=== PATIENT | male | born 1955 | race Caucasian/White ===

== ENCOUNTER 2016-04-09 10:37 | Emergency (ER) | payer MEDICARE, MEDICAID | END 2016-04-09 12:20 | disposition left against medical advice (07) | LOC: UCCORT 10:37 | DX: K59.00 Constipation, unspecified (principal); Z76.0 Encounter for issue of repeat prescription; Z53.21 Procedure and treatment not carried out due to patient leaving prior to being seen by health care provider ==

== ENCOUNTER 2016-04-16 18:44 | Emergency (ER) | payer MEDICARE, MEDICAID ==
[2016-04-16 19:16] VITALS: BP 150/103
== END 2016-04-16 20:46 | disposition left against medical advice (07) ==
LOC: ED 18:44
DX: F41.9 Anxiety disorder, unspecified (principal)

== ENCOUNTER 2016-09-13 16:38 | Emergency (ER) | payer MEDICARE, MEDICAID ==
[2016-09-13 16:47] VITALS: BP 110/56
--- NOTE | 2016-09-13 17:17 | UC ---
Psychiatric Complaint HPI - HPI Summary HPI Summary: 61 y/o male presents to the urgent care accompany by requesting a change in his medication for Geodon. He reports he has Hx of schizophrenia and has been taking Geodon since 12/2015 in the [facility] center. dose was increased to 60mg in 04/2016 and now he feels is causing him more depression and on and off headache. Patient denies fever, SOB, chest pain, N/V/D, FIORE. He denies any homicidal or suicidal ideation. - History Of Current Complaint Chief Complaint: UCMedRefill Stated Complaint: POSS CHANGE IN MEDICATION Time Seen by Provider: 09/13/16 16:45 Hx Obtained From: Patient, Family/Clinical Business Manager - Onset/Duration: Gradual Onset, Still Present Timing: Constant Severity Initially: Mild Severity Currently: Moderate Character: Depressed Aggravating Factor(s): Nothing - Medication increase dose is causing depression and he is sleeping more Alleviating Factor(s): Nothing Related History: Positive For: Prior Psychiatric Issues - Risk Factor(s) Completed Suicide Risk Factors: Male, Age Greater Than 60, White [place] - Allergies/Home Medications Allergies/Adverse Reactions: Allergies Allergy/AdvReac Type Severity Reaction Status Date / Time No Known Allergies Allergy Verified 09/13/16 16:47 Home Medications: Home Medications Escitalopram Oxalate [Lexapro 10 mg] 10 mg PO BID 09/13/16 [History Confirmed ] Ziprasidone CAP* [Geodon CAP*] 60 mg PO BID 09/13/16 [History Confirmed 09/13/16 ] PMH/Surg Hx/FS Hx/Imm Hx Previously Healthy: Yes Endocrine History: Diabetes Cardiovascular History: Hypertension Psychological History: Schizophrenia - Surgical History Surgical History: Yes Surgery Procedure, Year, and Place: 1957/2012 right leg surgery - Family History Known Family History: Positive: Cardiac Disease, Hypertension - Social History Occupation: Unemployed Lives: With Family Alcohol Use: None Substance Use Type: None Smoking Status (MU): Never Smoked Tobacco Review of Systems Constitutional: Negative Skin: Negative Eyes: Negative ENT: Negative Respiratory: Negative Cardiovascular: Negative Gastrointestinal: Negative Genitourinary: Negative Motor: Negative Neurovascular: Negative Musculoskeletal: Negative Neurological: Negative Psychological: Depressed All Other Systems Reviewed And Are Negative: Yes Physical Exam Triage Information Reviewed: Yes Appearance: Well-Appearing, No Pain Distress, Well-Nourished, Obese Vital Signs: Initial Vital Signs Temp 98.8 F 09/13/16 16:40 Pulse 80 09/13/16 16:40 Resp 18 09/13/16 16:40 BP 110/56 09/13/16 16:40 Pulse Ox 97 09/13/16 16:40 Vital Signs Reviewed: Yes Eye Exam: Normal Eyes: Positive: Conjunctiva Clear - PERRLA, EOMI, fundus grossly normal ENT Exam: Normal ENT: Positive: Normal ENT inspection, Hearing grossly normal, Pharynx normal, TMs normal Neck exam: Normal Neck: Positive: Supple, Nontender, No Lymphadenopathy Respiratory Exam: Normal Respiratory: Positive: Chest non-tender, Lungs clear, Normal breath sounds Cardiovascular Exam: Normal Cardiovascular: Positive: RRR, No Murmur, Pulses Normal - S1S2 Abdominal Exam: Normal Abdomen Description: Positive: Nontender, No Organomegaly, Soft. Negative: CVA Tenderness (R), CVA Tenderness (L) Bowel Sounds: Positive: Present Musculoskeletal Exam: Normal Musculoskeletal: Positive: Strength Intact, ROM Intact, No Edema Neurological Exam: Normal Neurological: Positive: Alert - and oriented x 3, CNII- CXII WNL. Psychological Exam: Normal Psychological: Positive: Normal Response To Family - concerned with medication Gedon is causing him to sleep more and depressed. Skin Exam: Normal Psych Complaint Course/Dx - Course Course Of Treatment: Medication chage request for Schizophrenia: Hx obtained>. PE: WNL, Psychological: Positive: Normal Response To Family - concerned with medication Gedon is causing him to sleep more and depressed. Pt denies homicidal or suicidal ideation after talking to him. Pt advised we don't have a Psychiatrist on site who will be able to change his medication. He should follow up with his PCP Lou Wilson of return to the [facility] center to adjust medication or change medication. Pt given [facility] [place] # so he can call to set up an appt with another psychiatrist. Pt understood and agreed. - Differential Dx/Diagnosis Differential Diagnosis/HQI/PQRI: Acute Psychosis, Depression, Homicidal Gesture , Schizophrenia, Suicide Attempt, Suicidal Ideation Provider Diagnoses: Schizophrenia Discharge - Discharge Plan Condition: Stable Disposition: HOME Patient Education Materials: Schizophrenia (ED) Referrals: Lou Wilson PA [Primary Care Provider] - [facility] REFERRAL [Outside] Additional Instructions: Please follow up with your PCP of call the [facility] physician referral to set up an appt with a psychiatrist for further evaluation and treatment and change in your medications. If you feel any suicidal ideation in the future please go immediately to the ER.
== END 2016-09-13 17:16 | disposition home or self-care (01) ==
LOC: UCCORT 16:38
DX: F20.9 Schizophrenia, unspecified (principal)
CPT/HCPCS: 99211; G0463

== ENCOUNTER 2016-10-10 10:37 | Emergency (ER) | payer MEDICARE, MEDICAID ==
[2016-10-10 11:07] VITALS: BP 122/68
--- NOTE | 2016-10-10 12:38 | UC ---
Eye Complaint HPI - HPI Summary HPI Summary: pt develop redness and swelling around rt eye 3 days ago that has gotten progressively worse. yesterday, the eyelid has also become painful with blinking. pt also note some sinus congestion and ongoing pnd. no pain in eye ball itself or when moving eye. no changes in vision. no bulging of eye. no fever. no other sx. - History of Current Complaint Chief Complaint: UCEye Stated Complaint: RIGHT EYE COMPLAINT Time Seen by Provider: 10/10/16 11:14 Hx Obtained From: Patient Onset/Duration: Gradual Onset, Lasting Days, Still Present, Worse Since Timing: Constant Severity Initially: Moderate Severity Currently: Moderate Pain Intensity: 2 Pain Scale Used: 0-10 Numeric Location of Injury: Periorbital Character: Dull Aggravating Factor(s): Blinking Alleviating Factor(s): Nothing Associated Signs And Symptoms: Positive: Swelling. Negative: Photophobia, Drainage (Clear), Drainage (Purulent), Vision Impairment Bilateral, Vision Impairment Right, Vision Impairment Left, Fever - Risk Factors Penetrating Injury Risk Factor: Negative - Allergies/Home Medications Allergies/Adverse Reactions: Allergies Allergy/AdvReac Type Severity Reaction Status Date / Time No Known Allergies Allergy Verified 10/10/16 10:58 PMH/Surg Hx/FS Hx/Imm Hx Cardiovascular History: Hypertension Respiratory History: COPD, Asthma Psychological History: Schizophrenia - Surgical History Surgical History: Yes Surgery Procedure, Year, and Place: 1957/2012 right leg surgery - Family History Known Family History: Positive: Cardiac Disease, Hypertension - Social History Lives: With Family Alcohol Use: None Substance Use Type: None Smoking Status (MU): Never Smoked Tobacco - Immunization History Most Recent Influenza Vaccination: 2016 Most Recent Tetanus Shot: UTD Most Recent Pneumonia Vaccination: none Review of Systems Constitutional: Negative Skin: Other - see hpi Eyes: Other - see hpi ENT: Sinus Congestion Respiratory: Negative Cardiovascular: Negative Gastrointestinal: Negative Musculoskeletal: Negative Neurological: Negative Psychological: Negative All Other Systems Reviewed And Are Negative: Yes Physical Exam Triage Information Reviewed: Yes Appearance: Well-Appearing, No Pain Distress, Obese Vital Signs: Initial Vital Signs Temp 98.6 F 10/10/16 10:59 Pulse 77 10/10/16 10:59 Resp 24 10/10/16 10:59 BP 122/68 10/10/16 10:59 Pulse Ox 94 10/10/16 10:59 Vital Signs Reviewed: Yes Eyes: Positive: Conjunctiva Clear, Discharge, Other: - swelling, red tenderness around rt eye. ENT: Positive: Hearing grossly normal, Pharynx normal, Nasal congestion, Nasal drainage, TMs normal. Negative: Tonsillar swelling, Tonsillar exudate, Trismus , Muffled/hoarse voice Neck: Positive: Supple, Nontender, No Lymphadenopathy Respiratory: Positive: Lungs clear, Normal breath sounds, No respiratory distress, No accessory muscle use Cardiovascular: Positive: RRR, No Murmur Musculoskeletal Exam: Normal Neurological: Positive: Alert, Muscle Tone Normal Psychological: Positive: Age Appropriate Behavior Skin: Positive: Other - see eye exam Eye Complaint Course/Dx - Differential Dx/Diagnosis Differential Diagnosis/HQI/PQRI: Conjunctivitis, Corneal Abrasion, Periorbital Cellulitis Provider Diagnoses: periorbital cellulitis Discharge - Discharge Plan Condition: Stable Disposition: HOME Prescriptions: Sulfamethox/Trimethoprim DS* [Bactrim DS 800/160 TAB*] 1 tab PO BID #20 tab Patient Education Materials: Periorbital Cellulitis in Adults (ED) Referrals: Lou Wilson PA [Primary Care Provider] - 2 Days (Follow up in 2 days for re- evaluation. This follow up visit is important, we want to know that you are improving. If you can not get in with your PCP, return here for re-evaluation. ) Additional Instructions: ANTIBIOTIC THERAPY: You have been given an antibiotic prescription. It's important that you take all the medication, unless instructed otherwise by your physician. Failure to complete the entire course can result in relapse of your condition. Common side effects of antibiotics include nausea, intestinal cramping, or diarrhea. Women may develop vaginal yeast infections, and babies can get yeast (thrush) in the mouth following the use of antibiotics. Contact your physician if you develop significant side effects from this medication. Allergy to this antibiotic can result in hives, wheezing, faintness, or itching. If symptoms of allergy occur, stop the medication and call the doctor. ANYTIME YOU TAKE AN ANTIBIOTIC, IT IS IMPORTANT TO REPLENISH THE BODY'D SUPPLY OF "GOOD BACTERIA." YOU CAN GET GOOD BACTERIA FROM HIGH QUALITY CULTURED FOODS SUCH LOCAL YOGURT, SOUR KRAUT, SAMANTHA ARGELIA, NATURALLY FERMENTED PICKLES AND PROBIOTIC DRINKS. YOU CAN ALSO GET GOOD BACTERIA FROM A PROBIOTIC SUPPLEMENT.
== END 2016-10-10 11:58 | disposition home or self-care (01) ==
LOC: UCCORT 10:37
DX: L03.213 Periorbital cellulitis (principal)
CPT/HCPCS: 99212; G0463

== ENCOUNTER 2018-08-25 07:02 | Emergency (ER) | payer MEDICARE, MEDICAID ==
[2018-08-25 07:20] VITALS: BP 133/76
[2018-08-25] MEDS ORDERED: predniSONE TAB* 20 MG PO ONE (07:34)
[2018-08-25] MEDS ORDERED: Albuterol 2.5 MG/3 ML NEB.SOL* (0.083%) INH ONE (07:34)
--- NOTE | 2018-08-25 07:41 | UC ---
Respiratory Complaint HPI - HPI Summary HPI Summary: 63-year-old male comes in with a chief complaint of wheezing and shortness of breath. Patient reports a history of asthma. So the last time he had any problems with his asthma was about 3 years ago. Since that time he has not been using any inhalers. The last couple of weeks he's been wheezing. Last night it got a lot worse he felt very short of breath. Denies any chest pain or concern of a heart attack. No pedal edema. Denies any upper respiratory tract infection symptoms. No fevers or chills. - History of Current Complaint Chief Complaint: UCRespiratory Stated Complaint: ALLERGY SYMPTOMS Time Seen by Provider: 08/25/18 07:28 Pain Intensity: 0 - Allergies/Home Medications Allergies/Adverse Reactions: Allergies Allergy/AdvReac Type Severity Reaction Status Date / Time No Known Allergies Allergy Verified 08/25/18 07:22 Home Medications: Home Medications ARIPiprazole TAB* [Abilify 15 MG TAB*] 30 mg PO DAILY 08/25/18 [History Confirmed 08/25/18] PMH/Surg Hx/FS Hx/Imm Hx Previously Healthy: Yes Respiratory History: Asthma - Surgical History Surgical History: Yes Surgery Procedure, Year, and Place: 1957/2012 right leg surgery - Family History Known Family History: Positive: Cardiac Disease, Hypertension - Social History Alcohol Use: None Substance Use Type: None Smoking Status (MU): Never Smoked Tobacco - Immunization History Most Recent Influenza Vaccination: 2016 Most Recent Tetanus Shot: UTD Most Recent Pneumonia Vaccination: none Review of Systems All Other Systems Reviewed And Are Negative: Yes Constitutional: Positive: Negative Skin: Positive: Negative Eyes: Positive: Negative ENT: Positive: Negative Respiratory: Positive: Other - see hpi Cardiovascular: Positive: Negative Gastrointestinal: Positive: Negative Motor: Positive: Negative Neurovascular: Positive: Negative Musculoskeletal: Positive: Negative Neurological: Positive: Negative Psychological: Positive: Negative Is Patient Immunocompromised?: No Physical Exam Triage Information Reviewed: Yes Appearance: Well-Appearing, No Pain Distress, Well-Nourished, Other: - No respiratory distress Vital Signs: Initial Vital Signs Temp 97.9 F 08/25/18 07:13 Pulse 69 08/25/18 07:13 Resp 20 08/25/18 07:13 BP 133/76 08/25/18 07:13 Pulse Ox 95 08/25/18 07:13 Vital Signs Reviewed: Yes Eye Exam: Normal ENT: Positive: Pharynx normal, TMs normal Neck: Positive: Supple Respiratory: Positive: No respiratory distress, Wheezing - b/l Cardiovascular: Positive: RRR Musculoskeletal: Positive: Strength Intact, ROM Intact, No Edema - no calf tenderness Neurological Exam: Normal Neurological: Positive: Alert, Muscle Tone Normal Psychological Exam: Normal Psychological: Positive: Age Appropriate Behavior Skin Exam: Normal Respiratory Course/Dx - Course Course Of Treatment: Patient's oxygen saturation in the clinic was 95% on room air. Not in acute respiratory distress however he did have bilateral wheezing. No pedal edema no calf tenderness no complaint of chest pain. No complaint of any infectious symptoms. Patient was treated with an albuterol nebulizer in the clinic and also started on prednisone. I let the patient 90s to follow-up with his regular doctor. he needs to give him a call today so that he can have his asthma managed appropriately. I let the patient know that if he gets worse he needs to the emergency department for further evaluation and treatment. - Differential Dx/Diagnosis Provider Diagnosis: Asthma Discharge - Sign-Out/Discharge Documenting (check all that apply): Patient Departure All imaging exams completed and their final reports reviewed: No Studies - Discharge Plan Condition: Stable Disposition: HOME Prescriptions: Albuterol HFA INHALER* [Ventolin HFA Inhaler*] 2 puff INH Q4H PRN #1 mdi PRN Reason: Wheezing Beclomethasone 80 MCG MDI(NF) [Qvar 80 MCG MDI(NF)] 2 puff INH BID #1 mdi predniSONE TAB* [Deltasone 20 MG TAB*] 40 mg PO DAILY #8 tab Patient Education Materials: Asthma (ED) Referrals: Lou Wilson PA [Primary Care Provider] - Additional Instructions: FOLLOW UP WITH YOUR DOCTOR. GO TO THE EMERGENCY DEPARTMENT IF YOUR CONDITION WORSENS; CHEST PAIN, SHORTNESS OF BREATH, YOU FEEL ILL OR ANY QUESTIONS OR CONCERNS. - Billing Disposition and Condition Condition: STABLE Disposition: Home
== END 2018-08-25 08:24 | disposition home or self-care (01) ==
LOC: UCCORT 07:02
DX: J45.909 Unspecified asthma, uncomplicated (principal)
CPT/HCPCS: 99212; G0463; J7512